=== PATIENT | female | born 1945 | race Caucasian/White ===

== ENCOUNTER → 2018-12-05 | Outpatient (CLI) | payer MEDICARE ==
--- NOTE | 2018-12-05 10:34 | P.STRESS ---
- Stress Test Note Stress Test Results/Findings: Exam Performed: stress test Exam Date: 12/05/18 Reason for Exam: CHEST PAIN Height: 5 ft Weight: 73.936 kg Protocol: MATTEO Stage: 1 Duration of Exercise: 3:00 Resting Heart Rate: 69 Resting Blood Pressure: 129/76 Maximum Achieved Heart Rate: 131 Maximum Achieved Blood Pressure: 129/76 85% PMHR: 123 100% PMHR: 145 METS: 4.4 Technologist Comment: Stress Test Results/Findings: This is a 73 old female with history of hypercholesterolemia, being evaluated for chest pain and shortness of breath. Stress data: Baseline EKG showed sinus rhythm with normal CT interval, QRS duration. Blood pressure at rest is 129/76 with pulse rate of 69. Patient walked on the Matteo protocol for 3 minutes, achieving a maximal rate of 131 with a blood pressure 06/20/1983. EKGs taken during exercise showed mild nonspecific ST-T abnormalities with the less than half millimeter ST depression in inferolateral leads which are not diagnostic for ischemia. Patient did not express any chest pain. No arrhythmias are detected. Final impression #1. Limited excess capacity #2. The test was stopped because of shortness of breath and 90% of the predicted heart rate was achieved. #3. Mild nonspecific ST-T abnormalities which are not diagnostic for ischemia and probably the test is negative for ischemia #4. No arrhythmias are detected
== END | disposition home or self-care (01) ==
LOC: RADNMMAIN 08:31
PROVIDERS: ATTEND Family Medicine
DX: R07.89 Other chest pain (principal)
CPT/HCPCS: 93017

== ENCOUNTER → 2023-04-03 | Outpatient (CLI) | payer MEDICARE ==
[2023-04-03 15:51] LABS: Basophils # (A) 0.06 X 10*3/uL (0.00-0.10); Basophils % (A) 0.9 %; Eosinophils # (A) 0.04 X 10*3/uL (0.04-0.35); Eosinophils % (A) 0.6 %; HCT 40.8 % (37.2-46.3); Lymphocytes # (A) 0.96 X 10*3/uL (0.90-5.00); MCH 31.6 pg (27.0-32.0); MCHC 31.9 d/dL (32.0-37.0); MCV 99.3 FL (80.0-97.0); Mean Platelet Volume 11.4 FL (9.5-12.2); Monocytes # (A) 0.59 X 10*3/uL (0.20-1.00); Monocytes % (A) 8.6 %; NRBC Per 100 WBC 0 X 10*3/uL (0.00-0.01); Neutrophils # (A) 5.16 X 10*3/uL (1.80-7.70); Neutrophils % (A) 75.5 %; Platelet Count 198 X 10*3/uL (140-440); RBC 4.11 X 10*6/uL (4.10-5.20); RDW 14.5 % (11.5-14.5); WBC 6.84 X 10*3/uL (4.50-10.00)
[2023-04-03 15:57] LABS: ALT 21 U/L (8-44); AST 30 U/L (13-35); Albumin 4.3 d/dL (3.8-4.9); Albumin/Globulin Ratio 1.79 Ratio (1.60-3.17); Alkaline Phosphatase 82 U/L (41-126); BUN/Creat Ratio 27.86 Ratio (12.00-20.00); Blood Urea Nitrogen 19.5 mg/dL (9.0-27.0); C Reactive Protein <0.30 mg/dL (0.00-0.80); Calcium 9.6 mg/dL (8.7-10.3); Carbon Dioxide 25.7 mmol/L (21.6-31.8); Chloride 107 mmol/L (96-109); Chol/HDL Ratio 1.84 Ratio; Globulin 2.4 d/dL (1.6-3.3); Glucose 89 mg/dL (70-110); LDL Cholesterol,Calculated 79.4 mg/dL (0.0-131.0); Potassium 4.5 mmol/L (3.5-5.5); Rheumatoid Factor, Qnt <15 IU/mL (0-15); Sodium 144 mmol/L (135-145); T4, Free (Free Thyroxine) 1.07 ng/dL (0.80-1.80); Total Bilirubin 0.5 mg/dL (0.3-1.2); Total Protein 6.7 d/dL (6.2-8.2); VLDL Calculation 8.56 mg/dL (5.00-40.00)
[2023-04-03 16:15] LABS: Erythrocyte Sedimentation Rate 9 mm/Hr (0-30)
== END | disposition home or self-care (01) ==
LOC: LABWHC1 10:54
PROVIDERS: ATTEND Internal Medicine Critical Care Medicine
DX: E78.5 Hyperlipidemia, unspecified (principal); J84.10 Pulmonary fibrosis, unspecified
CPT/HCPCS: 36415; 80053; 80061; 83036; 84439; 84443; 85025; 85652; 86038; 86140; 86431

== ENCOUNTER → 2023-04-16 | Outpatient (CLI) | payer MEDICARE ==
--- NOTE | 2023-04-16 10:14 | CT ---
EXAMINATION TYPE: CT chest wo con CT DLP: 439 mGycm, Automated exposure control for dose reduction was used. DATE OF EXAM: 04/16/2023 9:44 AM COMPARISON: radiograph 04/03/2023. CLINICAL INDICATION:Female, 77 years old with history of J84.10 PULMONARY FIBROSIS; PHH, Pulmonary Fi brosis TECHNIQUE: Multiple axial images were obtained through the chest. Sagittal and coronal reformats were created for review. Contrast used: mL of (None if empty) Oral contrast used: (None if empty) FINDINGS: LUNGS/ PLEURA: Scattered reticular opacities are seen throughout the lungs. No evidence for honeycomb ing. No evidence for focal consolidation, pneumothorax or pleural effusion. AIRWAY: No bronchiectasis or bronchial wall thickening. HEART: The heart is enlarged for size. There is moderate coronary artery cusp patient's. MEDIASTINUM: No gross evidence of adenopathy. There is a moderate hiatal hernia. VASCULATURE: No aortic aneurysm. MUSCULOSKELETAL: Moderate disc degeneration changes are present throughout the thoracolumbar spine. S coliotic curvature of the spine. SOFT TISSUES/LYMPH NODES: Unremarkable. LOWER NECK: No significant findings. UPPER ABDOMEN: No significant findings. IMPRESSION: 1. Scattered reticular peripheral opacities which could represent sequela of prior covid infection. No definitive evidence for pulmonary fibrosis at this time. 2. Mild cardiomegaly. 3. Moderate coronary artery atherosclerosis. 4. Moderate hiatal hernia.
== END | disposition home or self-care (01) ==
LOC: RADCTMAIN 09:15
PROVIDERS: ATTEND Internal Medicine Critical Care Medicine
DX: J84.10 Pulmonary fibrosis, unspecified (principal); I25.10 Atherosclerotic heart disease of native coronary artery without angina pectoris; K44.9 Diaphragmatic hernia without obstruction or gangrene; I51.7 Cardiomegaly; R91.8 Other nonspecific abnormal finding of lung field
CPT/HCPCS: 71250

== ENCOUNTER → 2024-03-26 | Outpatient (CLI) | payer MEDICARE ==
--- NOTE | 2024-03-26 14:54 | CT ---
INDICATION: Patient age:Female; 78 years old; Reason for study: J84.10 PULMONARY FIBROSIS; PHH. COMPARISON: CT chest 04/16/2023 TECHNIQUE: Multiple thin axial images were obtained through the chest at selected intervals. Prone and supine in spiratory along with supine expiratory images were submitted for review. Please note that due to inte rval acquisition images as defined by high-resolution CT protocol the entire lung parenchyma is not e valuated, therefore small nodular densities may not be visualized. Evaluation of vascular structures , viscera and lymphatics is limited due to lack of intravenous contrast administration. One or more C T dose reduction strategies were utilized during this examination. Total DLP 464.90 mGycm. FINDINGS: LUNGS: Stable scattered peripheral reticular opacities seen throughout the lungs . Most prominent wit hin the periphery of the bilateral upper lobes. No definitive evidence for honeycombing. No etl informatica architect ural distortion. Scattered regions of paracicatricial emphysematous changes. Peripheral scattered reg ions of traction bronchiectasis. No acute area of infiltrative or consolidative change. Calcified gra nuloma within the right upper lobe. LARGE AIRWAYS: Central airways are patent. No dynamic airway collapse on expiratory imaging. PLEURA: No pleural effusion or thickening. HEART AND PERICARDIUM: Heart is normal in size. There is a trace pericardial effusion present. Modera te coronary artery calcifications present. MEDIASTINUM AND LUANN: No mediastinal or hilar lymphadenopathy or soft tissue mass. VESSELS: The thoracic aorta is normal in course and caliber. CHEST WALL AND DIAPHRAGM: Normal. LOWER NECK: Normal. UPPER ABDOMEN: Moderate size hiatal hernia. MUSCULOSKELETAL: No acute fracture. S-shaped scoliotic curvature of the spine. Degenerative changes of the visualized spine. IMPRESSION: Overall stable appearance of interstitial lung disease with scattered regions of traction bronchiecta sis and reticular peripheral opacities. [facility], , 03/26/2024 2:52 PM
== END | disposition home or self-care (01) ==
LOC: RADCTMAIN 11:47
PROVIDERS: ATTEND Internal Medicine Critical Care Medicine
CPT/HCPCS: 71250

== ENCOUNTER → 2024-04-18 | Outpatient (CLI) | payer MEDICARE ==
--- NOTE | 2024-04-18 11:33 | XR ---
EXAMINATION TYPE: XR cervical spine comp DATE OF EXAM: 04/18/2024 11:25 AM INDICATION: Patient age:Female; 78 years old; Reason for study: M54.2 CERVICALGIA; PHH. COMPARISON: None TECHNIQUE: The cervical spine was imaged in frontal, lateral, bilateral oblique, and odontoid project ions. FINDINGS: No acute fracture. Grade 1 anterolisthesis of C4 on C5. There are osteophytes noted throughout the ce rvical spine on the anterior and lateral aspects of the vertebral bodies. Multilevel disc space narro wing with endplate sclerosis most pronounced at C5-C7. Multilevel facet arthropathy with neural basil inal stenosis at C5-C7 bilaterally. Pedicles are intact. Soft tissues are within normal limits. The odontoid appears intact. IMPRESSION: 1. No fracture or dislocation. 2. Mild to moderate degenerative disc disease changes of the cervical spine. 3. Grade 1 anterolisthesis of C4 on C5. [facility], , 04/18/2024 11:31 AM
== END | disposition home or self-care (01) ==
LOC: RADXRMAIN 11:06
PROVIDERS: ATTEND Internal Medicine
DX: M43.12 Spondylolisthesis, cervical region (principal); M50.30 Other cervical disc degeneration, unspecified cervical region
CPT/HCPCS: 72050

== ENCOUNTER → 2024-05-14 | Outpatient (CLI) | payer MEDICARE ==
[~2024-05-14] MED LIST: DENOSUMAB 60 MG/ML 1 ML SYRINGE SQ NR
[2024-05-14 14:15] VITALS: BP 115/68; PULSE 73; RESP 16; TEMP 97.8
[2024-05-14] MEDS: DENOSUMAB 60 MG/ML 1 ML SYRINGE SQ NR (14:15)
== END ==
LOC: PROCWHC3 14:00
PROVIDERS: ATTEND Internal Medicine
DX: M81.0 Age-related osteoporosis without current pathological fracture (principal)
CPT/HCPCS: 96372; J0897

== ENCOUNTER 2024-12-14 10:28 | Emergency (ER) | payer MEDICARE ==
[2024-12-14 10:56] VITALS: TEMP 98.1
[2024-12-14 11:59] LABS: Basophils # (A) 0.06 10*3/uL (0.00-0.10); Basophils % (A) 1.2 %; Eosinophils # (A) 0.06 10*3/uL (0.04-0.35); Eosinophils % (A) 1.2 %; HCT 39.1 % (37.2-46.3); HGB 13.0 g/dL (12.0-15.0); Lymphocytes # (A) 0.68 10*3/uL (0.90-5.00); Lymphocytes % (A) 13.2 %; MCH 32.3 pg (27.0-32.0); MCHC 33.2 g/dL (32.0-37.0); MCV 97.3 fL (80.0-97.0); Monocytes # (A) 0.53 10*3/uL (0.20-1.00); Monocytes % (A) 10.3 %; Neutrophils # (A) 3.83 10*3/uL (1.80-7.70); Neutrophils % (A) 73.9 %; Platelet Count 216 10*3/uL (140-440); RBC 4.02 10*6/uL (4.10-5.20); RDW 13.4 % (11.5-14.5); WBC 5.17 10*3/uL (4.50-10.00)
[2024-12-14 12:02] LABS: ALT 25 U/L (4-34); AST 38 U/L (14-36); African American GFR (CKD) >90 (>60 ml/min/1.73 sqM); Albumin 4.0 g/dL (3.5-5.0); Alkaline Phosphatase 57 U/L (38-126); Anion Gap 6 mmol/L; Blood Urea Nitrogen 15 mg/dL (7-17); Calcium 9.6 mg/dL (8.4-10.2); Carbon Dioxide 28 mmol/L (22-30); Chloride 107 mmol/L (98-107); Glucose 95 mg/dL (74-99); Non-African American GFR(CKD) 82 (>60 ml/min/1.73 sqM); Potassium 4.5 mmol/L (3.5-5.1); Sodium 141 mmol/L (137-145); Total Protein 6.7 g/dL (6.3-8.2)
[2024-12-14] MEDS: MECLIZINE 12.5 MG TAB PO STA (12:07)
[2024-12-14] MEDS: SODIUM CHLORIDE 0.9% 500 ML 500 ML IV STA (12:08)
--- NOTE | 2024-12-14 12:49 | ED ---
Dizziness HPI - General Chief Complaint: Dizziness Stated Complaint: Left Ear Issue Time Seen by Provider: 12/14/24 11:13 Source: patient Mode of arrival: ambulatory Limitations: no limitations - History of Present Illness Initial Comments: 79-year-old female presenting with chief complaint of dizziness and bleeding from the left ear. Patient states that when she woke up she had a small amount of blood on her pillow in her left ear. She states that her left ear does "sound funny". She denies any injury or trauma. She states that she was not having any preceding ear pain. No cough congestion or sore throat. She does report that over the past few weeks she has not felt well. She reports that she has felt very lethargic. She has also had dizziness which is worse when she bends down and stands back up. She denies headache. No known fever. No abdominal pain nausea or vomiting. No chest pain or difficulty breathing. - Related Data Previous Rx's Medication Instructions Recorded Amoxic-Pot Clav 875-125Mg 1 tab PO Q12HR 7 Days #14 tab 12/14/24 [Augmentin 875-125] Allergies Allergy/AdvReac Type Severity Reaction Status Date / Time No Known Allergies Allergy Verified 05/14/24 14:15 Review of Systems ROS Statement: Those systems with pertinent positive or pertinent negative responses have been documented in the HPI. ROS Other: All systems not noted in ROS Statement are negative. Past Medical History Past Medical History: COPD, Hyperlipidemia, Osteoarthritis (OA) Additional Past Medical History / Comment(s): Lung fibrosis, bulging discs, degenerative disc disease, spinal stenosis History of Any Multi-Drug Resistant Organisms: None Reported Past Surgical History: Heart Catheterization With Stent Past Psychological History: No Psychological Hx Reported Smoking Status: Former smoker Past Alcohol Use History: None Reported Past Drug Use History: None Reported General Exam Limitations: no limitations General appearance: alert, in no apparent distress Head exam: Present: atraumatic, normocephalic, normal inspection Eye exam: Present: normal appearance, PERRL, EOMI. Absent: periorbital swelling Pupils: Present: normal accommodation Neck exam: Present: normal inspection. Absent: meningismus Respiratory exam: Present: normal lung sounds bilaterally. Absent: respiratory distress, wheezes, rales, rhonchi, stridor Cardiovascular Exam: Present: regular rate, normal rhythm, normal heart sounds. Absent: systolic murmur, diastolic murmur, rubs, gallop, clicks Neurological exam: Present: alert, oriented X3 Expanded Patient oriented to: Present: person, place, time Speech: Present: fluid speech Cranial nerves: EOM's Intact: Normal Sensory exam: Upper Extremity Light Touch: Normal, Lower Extremity Light Touch: Normal Motor strength exam: RUE: 5, LUE: 5, RLE: 5, LLE: 5 Eye Response: (4) open spontaneously Motor Response: (6) obeys commands Verbal Response: (5) oriented Lea Total: 15 Psychiatric exam: Present: normal affect, normal mood Skin exam: Present: warm, dry, normal color Course Vital Signs 12/14/24 12/14/24 12/14/24 10:51 12:11 14:04 Temperature 98.1 F Pulse Rate 64 55 L Pulse Rate [ 60 Right Pulse Oximetery] Respiratory 18 12 12 Rate Blood Pressure 114/70 110/70 Blood Pressure 144/84 [Right Arm] O2 Sat by Pulse 96 97 98 Oximetry 12/14/24 12/14/24 14:06 14:35 Temperature Pulse Rate 59 L Pulse Rate [ 67 Right Pulse Oximetery] Respiratory 18 12 Rate Blood Pressure 126/75 Blood Pressure 141/87 [Right Arm] O2 Sat by Pulse 97 99 Oximetry Medical Decision Making - Medical Decision Making EKG shows sinus rhythm with occasional supraventricular premature complexes. Ventricular rate 65. DC interval 200. QRS 88 QT 383 QTc 394 Was pt. sent in by a medical professional or institution (, PA, DRAWING OPERATOR, urgent care, hospital, or detention...) When possible be specific @ -No Did you speak to anyone other than the patient for history (EMS, parent, family, police, friend...)? What history was obtained from this source @ -No Did you review nursing and triage notes (agree or disagree)? Why? @ -I reviewed and agree with nursing and triage notes Were old charts reviewed (outside hosp., previous admission, EMS record, old EKG, old radiological studies, urgent care reports/EKG's, detention records)? Report findings @ -No old charts were reviewed Differential Diagnosis (chest pain, altered mental status, abdominal pain women, abdominal pain men, vaginal bleeding, weakness, fever, dyspnea, syncope, headache, dizziness, GI bleed, back pain, seizure, CVA, palpatations, mental health, musculoskeletal)? @ -MDM Differential Dizziness: Benign paroxysmal positional Vertigo, Meniere’s disease, otitis media, acoustic neuroma, vertebrobasilar insufficiency, cerebellar stroke, encephali tis, hypovolemic, arrhythmia, coronary artery syndrome, anemia… this is not meant to be an all-inclusive list EKG interpreted by me (3pts min.). @ -As above X-rays interpreted by me (1pt min.). @ -None done CT interpreted by me (1pt min.). @ -None done U/S interpreted by me (1pt. min.). @ -None done What testing was considered but not performed or refused? (CT, X-rays, U/S, labs)? Why? @ -None What meds were considered but not given or refused? Why? @ -None Did you discuss the management of the patient with other professionals (professionals i.e. , PA, DRAWING OPERATOR, lab, RT, psych nurse, social media sr strategy manager, notcher, teacher, science and operations officer, bilingual patient support caseworker)? Give summary @ -No Was smoking cessation discussed for >3mins.? @ -No Was critical care preformed (if so, how long)? @ -No Were there social determinants of health that impacted care today? How? (Homelessness, low income, unemployed, alcoholism, drug addiction, transportation, low edu. Level, literacy, decrease access to med. care, correction, rehab)? @ -No Was there de-escalation of care discussed even if they declined (Discuss DNR or withdrawal of care, Hospice)? DNR status @ -No What co-morbidities impacted this encounter? (DM, HTN, Smoking, COPD, CAD, Cancer, CVA, ARF, Chemo, Hep., AIDS, mental health diagnosis, sleep apnea, morb id obesity)? @ -None Was patient admitted / discharged? Hospital course, mention meds given and rou te, prescriptions, significant lab abnormalities, going to OR and other pertinent info. @ -79-year-old female presented chief complaint of dizziness as well as some bleeding from her left ear earlier this morning. On examination she does have a tympanic membrane rupture. She has had no head injury. She has no dizziness at this time, states that it comes on when she bends down. Lab work requires no immediate action. Negative orthostatic vitals. Patient was given meclizine here in the ER. Symptoms seem most likely attributed to inner ear etiology given the tympanic membrane rupture. Patient is started on Augmentin, she has upcoming appointments with her PCP and telecommunications linesworker this week, encouraged her to bring up these issues with them at that time and to report back to the ER sooner with any new or worsening symptoms. Follow-up with PCP. Report back to ER with any new or worsening symptoms. Discussed return parameters and answered all questions. Patient conveyed verbal understanding and agreed to the plan. I discussed this case in detail with my attending Dr. Ceballos Undiagnosed new problem with uncertain prognosis? @ -No Drug Therapy requiring intensive monitoring for toxicity (Heparin, Nitro, Insulin, Cardizem)? @ -No Were any procedures done? @ -No Diagnosis/symptom? @ -Tympanic membrane rupture, dizziness Acute, or Chronic, or Acute on Chronic? @ -Acute Uncomplicated (without systemic symptoms) or Complicated (systemic symptoms)? @ -Uncomplicated Side effects of treatment? @ -No Exacerbation, Progression, or Severe Exacerbation? @ -No Poses a threat to life or bodily function? How? (Chest pain, USA, ND, pneumonia, PE, COPD, DKA, ARF, appy, cholecystitis, CVA, Diverticulitis, Homicidal, Suicidal, threat to staff... and all critical care pts) @ -Unlikely - Lab Data Result diagrams: 12/14/24 11:20 12/14/24 11:20 Lab Results 12/14/24 12/14/24 12/14/24 Range/Units 11:20 11:20 11:20 WBC 5.17 (4.50-10.00) 10*3/uL RBC 4.02 L (4.10-5.20) 10*6/uL Hgb 13.0 (12.0-15.0) g/dL Hct 39.1 (37.2-46.3) % MCV 97.3 H (80.0-97.0) fL MCH 32.3 H (27.0-32.0) pg MCHC 33.2 (32.0-37.0) g/dL Plt Count 216 (140-440) 10*3/uL MPV 10.9 (9.5-12.2) fL Immature Gran % (Auto) 0.2 % Neutrophils % 73.9 % Lymphocytes % 13.2 % Monocytes % 10.3 % Eosinophils % 1.2 % Basophils % 1.2 % Immature Gran # 0.01 (0.00-0.04) 10*3/uL Neutrophils # 3.83 (1.80-7.70) 10*3/uL Lymphocytes # 0.68 L (0.90-5.00) 10*3/uL Monocytes # 0.53 (0.20-1.00) 10*3/uL Eosinophils # 0.06 (0.04-0.35) 10*3/uL Basophils # 0.06 (0.00-0.10) 10*3/uL Sodium 141 (137-145) mmol/L Potassium 4.5 (3.5-5.1) mmol/L Chloride 107 (98-107) mmol/L Carbon Dioxide 28 (22-30) mmol/L Anion Gap 6 mmol/L BUN 15 (7-17) mg/dL Creatinine 0.68 (0.52-1.04) mg/dL Est GFR (CKD-EPI)AfAm >90 (>60 ml/min/1.73 sqM) Est GFR (CKD-EPI)NonAf 82 (>60 ml/min/1.73 sqM) Glucose 95 (74-99) mg/dL Plasma Lactic Acid Jonh 0.7 (0.7-2.0) mmol/L Calcium 9.6 (8.4-10.2) mg/dL Total Bilirubin 0.7 (0.2-1.3) mg/dL AST 38 H (14-36) U/L ALT 25 (4-34) U/L Alkaline Phosphatase 57 (38-126) U/L Troponin I (0.000-0.034) ng/mL Total Protein 6.7 (6.3-8.2) g/dL Albumin 4.0 (3.5-5.0) g/dL Urine Color Urine Appearance (Clear) Urine pH (5.0-8.0) Ur Specific [place] (1.001-1.035) Urine Protein (Negative) Urine Glucose (UA) (Negative) Urine Ketones (Negative) Urine Blood (Negative) Urine Nitrite (Negative) Urine Bilirubin (Negative) Urine Urobilinogen (<2.0) mg/dL Ur Leukocyte Esterase (Negative) Urine RBC (0-5) /hpf Urine WBC (0-5) /hpf Ur Squamous Epith Cells (0-4) /hpf Urine Mucus (None) /hpf 12/14/24 12/14/24 Range/Units 11:20 13:23 WBC (4.50-10.00) 10*3/uL RBC (4.10-5.20) 10*6/uL Hgb (12.0-15.0) g/dL Hct (37.2-46.3) % MCV (80.0-97.0) fL MCH (27.0-32.0) pg MCHC (32.0-37.0) g/dL Plt Count (140-440) 10*3/uL MPV (9.5-12.2) fL Immature Gran % (Auto) % Neutrophils % % Lymphocytes % % Monocytes % % Eosinophils % % Basophils % % Immature Gran # (0.00-0.04) 10*3/uL Neutrophils # (1.80-7.70) 10*3/uL Lymphocytes # (0.90-5.00) 10*3/uL Monocytes # (0.20-1.00) 10*3/uL Eosinophils # (0.04-0.35) 10*3/uL Basophils # (0.00-0.10) 10*3/uL Sodium (137-145) mmol/L Potassium (3.5-5.1) mmol/L Chloride (98-107) mmol/L Carbon Dioxide (22-30) mmol/L Anion Gap mmol/L BUN (7-17) mg/dL Creatinine (0.52-1.04) mg/dL Est GFR (CKD-EPI)AfAm (>60 ml/min/1.73 sqM) Est GFR (CKD-EPI)NonAf (>60 ml/min/1.73 sqM) Glucose (74-99) mg/dL Plasma Lactic Acid Jonh (0.7-2.0) mmol/L Calcium (8.4-10.2) mg/dL Total Bilirubin (0.2-1.3) mg/dL AST (14-36) U/L ALT (4-34) U/L Alkaline Phosphatase (38-126) U/L Troponin I <0.012 (0.000-0.034) ng/mL Total Protein (6.3-8.2) g/dL Albumin (3.5-5.0) g/dL Urine Color Colorless Urine Appearance Clear (Clear) Urine pH 7.0 (5.0-8.0) Ur Specific [place] 1.006 (1.001-1.035) Urine Protein Negative (Negative) Urine Glucose (UA) Negative (Negative) Urine Ketones Negative (Negative) Urine Blood Negative (Negative) Urine Nitrite Negative (Negative) Urine Bilirubin Negative (Negative) Urine Urobilinogen <2.0 (<2.0) mg/dL Ur Leukocyte Esterase Trace H (Negative) Urine RBC <1 (0-5) /hpf Urine WBC 1 (0-5) /hpf Ur Squamous Epith Cells <1 (0-4) /hpf Urine Mucus Rare H (None) /hpf Disposition Clinical Impression: Tympanic membrane rupture, Dizziness Disposition: HOME SELF-CARE Condition: Good Instructions (If sedation given, give patient instructions): Ruptured Eardrum (ED), Dizziness (ED) Additional Instructions: Follow-up with your PCP and telecommunications linesworker. Report back to ER with any new or worsening symptoms. Take medication as prescribed. Prescriptions: Amoxic-Pot Clav 875-125Mg [Augmentin 875-125] 1 tab PO Q12HR 7 Days #14 tab Is patient prescribed a controlled substance at d/c from ED?: No Referrals: Rafael Rajan MD [Primary Care Provider] - 1-2 days Time of Disposition: 14:18
[2024-12-14 13:29] LABS: Bilirubin,Urine Negative (Negative); Blood,Urine Negative (Negative); Color,Urine Colorless; Glucose,Urine (UA) Negative (Negative); Ketones,Urine Negative (Negative); Leukocyte Esterase,Urine Trace (Negative); Mucus,Urine Rare /hpf; Nitrite,Urine Negative (Negative); PH, Urine 7.0 (5.0-8.0); Protein,Urine Negative (Negative); RBC,Urine <1 /hpf (0-5); Specific Gravity,Urine 1.006 (1.001-1.035); Squamous Epithelial Cell,Urine <1 /hpf (0-4); Urobilinogen,Urine <2.0 mg/dL (<2.0); WBC,Urine 1 /hpf (0-5)
[2024-12-14] MEDS: AMOXIC-POT CLAV 875-125MG 1 EACH TAB PO STA (14:30)
[2024-12-14 14:37] VITALS: BP 126/75; PULSE 59; RESP 12
== END 2024-12-14 14:38 | disposition home or self-care (01) ==
LOC: EC 10:28
DX: H72.92 Unspecified perforation of tympanic membrane, left ear (principal); Z87.891 Personal history of nicotine dependence
CPT/HCPCS: 36415; 80053; 81001; 83605; 84484; 85025; 93005; 99284